=== PATIENT | female | born 1995 | race Caucasian/White ===

== ENCOUNTER 2019-04-20 15:35 | Emergency (ER) | payer OTHER ==
[~2019-04-20] VITALS: Ht 170.2 cm; Wt 70.0 kg
[2019-04-20 15:36] VITALS: Ht 170.2 cm; Wt 70.0 kg
[2019-04-20] MEDS ORDERED: HYDROCODON-ACE1 EAC7 PO (16:29)
[2019-04-20 16:40] VITALS: BP 115/72
== END 2019-04-20 16:41 | disposition home or self-care (01) ==
LOC: D.ER 15:35
DX: S61.511A Laceration without foreign body of right wrist, initial encounter (principal); W25.XXXA Contact with sharp glass, initial encounter